=== PATIENT | female | born 1960 | race Caucasian/White ===

== ENCOUNTER 2018-10-13 10:35 | Inpatient (IN) | payer OTHER, BC ==
[2018-10-13] MEDS: HYDROmorphONE 0.5 MG/0.5 ML SYG IM ×2 (13:09→14:50)
[2018-10-13 15:27] LABS: ADD MAN DIFF? NO
[2018-10-13 15:28] LABS: WHITE BLOOD COUNT 9.2 10^3/ul (4.8-10.8)
[2018-10-13 15:28] LABS: BASOPHIL # 0.1 10^3/ul (0.0-0.1); BASOPHILS % 0.7 % (0.0-2.0); EOSINOPHILS # 0.1 10^3/ul (0.0-0.5); EOSINOPHILS % 0.9 % (0.0-7.0); HEMATOCRIT 39.6 % (37.0-47.0); LYMPHOCYTES # 1.7 10^3/ul (0.8-2.9); LYMPHOCYTES % 18.6 % (15.0-51.0); MEAN CORPUSCULAR HEMOGLOBIN 30.5 pg (29.0-33.0); MEAN CORPUSCULAR HGB CONC 32.8 g/dl (32.0-37.0); MEAN PLATELET VOLUME 10.4 fl (7.4-10.4); MONOCYTES % 10.8 % (0.0-11.0); NEUTROPHIL # 6.3 10^3/ul (1.6-7.5); NEUTROPHILS % 68.9 % (39.0-77.0); PLATELET COUNT 272 10^3/UL (140-415); RED BLOOD COUNT 4.26 10^6/ul (4.20-5.40); RED CELL DISTRIBUTION WIDTH 13.2 % (11.5-14.5)
[2018-10-13] MEDS ORDERED: ONDANSETRON 4 MG INJ IV ×2 (15:30→17:00)
[2018-10-13] MEDS ORDERED: ACETAMINOPHEN 325 MG TAB PO ×2 (15:30→17:00)
[2018-10-13 15:48] LABS: ALANINE AMINOTRANSFERASE 32 IU/L (13-69); ALBUMIN 4.8 g/dl (3.3-4.9); ALKALINE PHOSPHATASE 62 IU/L (42-121); ANION GAP 10 (5-13); ASPARTATE AMINO TRANSFERASE 36 IU/L (15-46); BILIRUBIN,INDIRECT 0.3 mg/dl (0-1.1); BILIRUBIN,TOTAL 0.3 mg/dl (0.2-1.3); BLOOD UREA NITROGEN 14 mg/dl (7-20); CALCIUM 9.7 mg/dl (8.4-10.2); CARBON DIOXIDE 30 mmol/L (21-31); CHLORIDE 100 mmol/L (97-110); CREATININE 0.62 mg/dl (0.44-1.00); Estimated GFR > 60 mL/min (>60); GLUCOSE 86 mg/dl (70-220); POTASSIUM 3.9 mmol/L (3.5-5.1); SODIUM 140 mmol/L (135-144); TOTAL PROTEIN 7.8 g/dl (6.1-8.1)
[2018-10-13 15:49] LABS: INR 0.82; PROTIME 11.4 Sec (11.9-14.9); PT RATIO 0.9
[2018-10-13 15:50] LABS: PARTIAL THROMBOPLASTIN TIME 28.7 Sec (23.0-35.0)
[2018-10-13] MEDS ORDERED: NACL 0.9% 3 ML SYG IV (17:00)
[2018-10-13] MEDS: GABAPENTIN 300 MG CAP PO ×2 (17:40→21:14)
[2018-10-13] MEDS: HYDROmorphONE 1 MG/ML SYG IV (17:41)
[2018-10-13 19:17] LABS: TROPONIN-I < 0.012 ng/ml (0.000-0.120)
[2018-10-13] MEDS: AMITRIPTYLINE 10 MG TAB PO (21:14)
[2018-10-13] MEDS: LORAZEPAM 1 MG TAB PO (22:59)
[2018-10-13] MEDS: HYDROCODONE/APAP (5/325) TAB PO (23:01)
[2018-10-14] MEDS: HYDROmorphONE 1 MG/ML SYG IV ×6 (00:06→22:04)
[2018-10-14] MEDS: DOCUSATE SODIUM 100 MG CAP PO ×3 (02:40→21:42)
[2018-10-14] MEDS: POLYETHYLENE GLYCOL 17 GM PACKET PO ×2 (02:40→09:00)
[2018-10-14 05:08] LABS: ADD MAN DIFF? NO
[2018-10-14 05:13] LABS: WHITE BLOOD COUNT 8.4 10^3/ul (4.8-10.8)
[2018-10-14 05:13] LABS: BASOPHIL # 0.1 10^3/ul (0.0-0.1); BASOPHILS % 1.1 % (0.0-2.0); EOSINOPHILS # 0.3 10^3/ul (0.0-0.5); EOSINOPHILS % 3.3 % (0.0-7.0); HEMATOCRIT 38.4 % (37.0-47.0); HEMOGLOBIN 12.6 g/dl (12.0-16.0); LYMPHOCYTES # 2.6 10^3/ul (0.8-2.9); LYMPHOCYTES % 31.1 % (15.0-51.0); MEAN CORPUSCULAR HEMOGLOBIN 30.4 pg (29.0-33.0); MEAN CORPUSCULAR HGB CONC 32.8 g/dl (32.0-37.0); MEAN CORPUSCULAR VOLUME 92.8 fl (82.0-101.0); MEAN PLATELET VOLUME 10.5 fl (7.4-10.4); MONOCYTES % 11.5 % (0.0-11.0); NEUTROPHIL # 4.4 10^3/ul (1.6-7.5); NEUTROPHILS % 52.8 % (39.0-77.0); PLATELET COUNT 254 10^3/UL (140-415); RED BLOOD COUNT 4.14 10^6/ul (4.20-5.40); RED CELL DISTRIBUTION WIDTH 13.2 % (11.5-14.5)
[2018-10-14 05:37] LABS: PHOSPHORUS 4.5 mg/dl (2.5-4.9)
[2018-10-14 05:37] LABS: MAGNESIUM 2.1 mg/dl (1.7-2.5)
[2018-10-14 05:43] LABS: ANION GAP 7 (5-13); BLOOD UREA NITROGEN 10 mg/dl (7-20); CALCIUM 9.7 mg/dl (8.4-10.2); CARBON DIOXIDE 32 mmol/L (21-31); CHLORIDE 102 mmol/L (97-110); CREATININE 0.71 mg/dl (0.44-1.00); Estimated GFR > 60 mL/min (>60); GLUCOSE 102 mg/dl (70-220); POTASSIUM 4.1 mmol/L (3.5-5.1); SODIUM 141 mmol/L (135-144)
[2018-10-14] MEDS: HYDROCODONE/APAP (5/325) TAB PO (08:26)
[2018-10-14] MEDS: GABAPENTIN 300 MG CAP PO ×3 (09:40→21:42)
[2018-10-14] MEDS: ENOXAPARIN 40 MG/0.4 ML SYG SC (09:43)
[2018-10-14] MEDS: AMITRIPTYLINE 10 MG TAB PO (21:42)
[2018-10-14] MEDS: LORAZEPAM 1 MG TAB PO (21:42)
[2018-10-15] MEDS: HYDROmorphONE 1 MG/ML SYG IV ×5 (04:54→22:14)
[2018-10-15] MEDS: GABAPENTIN 300 MG CAP PO ×3 (07:56→21:25)
[2018-10-15] MEDS: DOCUSATE SODIUM 100 MG CAP PO ×2 (07:57→21:25)
[2018-10-15] MEDS: POLYETHYLENE GLYCOL 17 GM PACKET PO ×2 (07:57→09:00)
[2018-10-15] MEDS: HYDROCODONE/APAP (5/325) TAB PO ×3 (07:57→20:22)
[2018-10-15] MEDS: ENOXAPARIN 40 MG/0.4 ML SYG SC (07:58)
[2018-10-15] MEDS: AMITRIPTYLINE 10 MG TAB PO (21:25)
[2018-10-15] MEDS: LORAZEPAM 1 MG TAB PO (21:26)
[2018-10-16] MEDS: HYDROCODONE/APAP (5/325) TAB PO ×3 (05:18→19:50)
[2018-10-16] MEDS: DOCUSATE SODIUM 100 MG CAP PO ×2 (07:46→21:39)
[2018-10-16] MEDS: HYDROmorphONE 1 MG/ML SYG IV ×4 (07:47→22:53)
[2018-10-16] MEDS: GABAPENTIN 300 MG CAP PO ×3 (07:47→21:39)
[2018-10-16] MEDS: POLYETHYLENE GLYCOL 17 GM PACKET PO (07:47)
[2018-10-16] MEDS: ENOXAPARIN 40 MG/0.4 ML SYG SC (07:56)
[2018-10-16] MEDS: AMITRIPTYLINE 10 MG TAB PO (21:39)
[2018-10-16] MEDS: LORAZEPAM 1 MG TAB PO (21:41)
[2018-10-17] MEDS: HYDROCODONE/APAP (5/325) TAB PO ×3 (06:40→18:55)
[2018-10-17] MEDS: HYDROmorphONE 1 MG/ML SYG IV ×3 (08:11→23:43)
[2018-10-17] MEDS: GABAPENTIN 300 MG CAP PO ×3 (08:11→23:10)
[2018-10-17] MEDS: DOCUSATE SODIUM 100 MG CAP PO ×2 (08:12→23:10)
[2018-10-17] MEDS: POLYETHYLENE GLYCOL 17 GM PACKET PO (08:12)
[2018-10-17] MEDS: ENOXAPARIN 40 MG/0.4 ML SYG SC (08:23)
[2018-10-17] MEDS: AMITRIPTYLINE 10 MG TAB PO (23:11)
[2018-10-17] MEDS: LORAZEPAM 1 MG TAB PO (23:11)
[2018-10-18] MEDS: GABAPENTIN 300 MG CAP PO ×2 (08:27→18:29)
[2018-10-18] MEDS: DOCUSATE SODIUM 100 MG CAP PO (08:27)
[2018-10-18] MEDS: ENOXAPARIN 40 MG/0.4 ML SYG SC (08:29)
[2018-10-18] MEDS: HYDROCODONE/APAP (5/325) TAB PO ×2 (08:38→14:28)
[2018-10-18] MEDS: POLYETHYLENE GLYCOL 17 GM PACKET PO (09:00)
[2018-10-18] MEDS: HYDROmorphONE 1 MG/ML SYG IV ×2 (10:12→19:23)
== END 2018-10-18 20:45 | disposition home health service (06) | DRG 563 ==
LOC: FTE 10:35 → MS1 15:26
DX: S82.142A Displaced bicondylar fracture of left tibia, initial encounter for closed fracture (principal); Q21.1 Atrial septal defect; G89.29 Other chronic pain
CPT/HCPCS: 73700; 73721; 80048; 80053; 83735; 84100; 84484; 85025; 85610; 85730; 93005; 93306; 96372; 97116; 97161; 97530; 99285-25